=== PATIENT | female | born 1965 | race American Indian/Alaskan Native ===

== ENCOUNTER 2017-09-08 10:53 | Outpatient (CLI) | payer MEDICARE ==
--- NOTE | 2017-09-08 13:57 | Mammography Report ---
BILATERAL DIGITAL DIAGNOSTIC MAMMOGRAM with CAD and LEFT BREAST ULTRASOUND: 09/08/17 10:53:00 CLINICAL: Left breast pain for four days. Status post bilateral reduction mammoplasty. COMPARISON:02/26/16 FINDINGS: The breasts are almost entirely fatty.No mass, architectural distortion or suspicious calcifications. Ultrasound of the left breast in the area of pain from 2 o'clock to 5 o'clock and demonstrated normal fatty and fibroglandular structures. No mass, cyst or shadowing. IMPRESSION: Negative mammogram and negative left breast ultrasound. BI-RADS CATEGORY: 1 - - Negative RECOMMENDATION: Clinical followup and routine mammographic screening in one year. ACR BI-RADS MAMMOGRAPHIC CODES: 0 = Needs additional imaging evaluation; 1 = Negative; 2 = Benign; 3 = Probably benign; 4 = Suspicious; 5 = Malignant; 6 = Known biopsy-proven malignancy COMMENT: 1. Dense breast tissue, i.e., adenosis, fibrocystic changes, etc., may obscure an underlying neoplasm. 2. Approximately 10% of cancers are not detected with mammography. 3. A negative mammography report should not delay biopsy if a clinically suspicious mass is present. COMMENT: Patient follow-up letters are generated by our [employer] application.
== END 2017-09-08 10:54 | disposition home or self-care (01) ==
LOC: SPVWC 10:53
PROVIDERS: ATTEND Family Medicine
DX: N64.4 Mastodynia (principal); I10 Essential (primary) hypertension; F32.9 Major depressive disorder, single episode, unspecified; M19.90 Unspecified osteoarthritis, unspecified site; M79.7 Fibromyalgia; Z90.49 Acquired absence of other specified parts of digestive tract; Z90.89 Acquired absence of other organs; Z86.73 Personal history of transient ischemic attack (TIA), and cerebral infarction without residual deficits; Z88.6 Allergy status to analgesic agent; Z88.8 Allergy status to other drugs, medicaments and biological substances; Z91.013 Allergy to seafood
CPT/HCPCS: 77066

== ENCOUNTER 2018-05-22 19:49 | Emergency (ER) | payer MEDICARE ==
--- NOTE | 2018-05-22 20:28 | Emergency Department Report ---
Blank Doc - Documentation Documentation: luq pain with nausea and vomiting for 2-3 days. feverish
[2018-05-22] MEDS ORDERED: SUBLIMAZE IV ONE (20:45)
[2018-05-22] MEDS ORDERED: ZOFRAN IV ONE (20:45)
--- NOTE | 2018-05-22 20:49 | Emergency Department Report ---
ED Abdominal Pain HPI - General Chief Complaint: Abdominal Pain Stated Complaint: CHEST/BACK PAIN Time Seen by Provider: 05/22/18 20:24 Source: patient Mode of arrival: Ambulatory Limitations: No Limitations - History of Present Illness Initial Comments: Patient is 53 years old female with history of gastric sleeves and February 2018. Patient presented to the ER complaining of left lower quadrant pain since yesterday. Patient describes her pain as sharp with no radiation. Patient denied any nausea or vomiting or diarrhea. Patient stated that she's been having fever and chills. MD Complaint: abdominal pain Severity scale (0 -10): 10 - Related Data Home Medications Medication Instructions Recorded Confirmed Last Taken ALPRAZolam [Xanax TAB] 0.25 mg PO DAILY 10/10/14 02/13/15 Unknown Naproxen [Naprosyn TAB] 500 mg PO DAILY PRN 10/10/14 02/13/15 Unknown Percocet 5/325 mg 1 caplet PO PRN PRN 10/10/14 02/13/15 Unknown Pregabalin [Lyrica] 225 mg PO BID 10/10/14 02/13/15 Unknown Triamter/Hctz 37.5-25 mg 37.5 caplet PO DAILY 10/10/14 02/13/15 Unknown Zolpidem [Ambien] 10 mg PO QHS 10/10/14 02/13/15 Unknown Estradiol [Minivelle] 1 patch TRANSDERMA DAILY 02/13/15 02/13/15 Unknown PARoxetine MESYLATE [Brisdelle] 7.5 mg PO DAILY 02/13/15 02/13/15 Unknown cephALEXin [Keflex] 500 mg PO Q8HR 02/13/15 02/13/15 Unknown Previous Rx's Medication Instructions Recorded Last Taken Type Latanoprost [Latanoprost] 1 gm PO DAILY 10/11/14 Unknown Rx Nitroglycerin (Nf) [Nitrostat] 0.3 mg SL PRN #25 tablet 02/14/15 Unknown Rx Allergies Allergy/AdvReac Type Severity Reaction Status Date / Time cephalexin [From Keflex] Allergy Vomiting Verified 05/22/18 20:00 morphine Allergy Swelling Verified 05/22/18 20:00 shellfish derived Allergy Anaphylaxis Verified 10/10/14 17:49 ketorolac tromethamine AdvReac Unknown Verified 08/04/13 12:16 [From Toradol] promethazine HCl AdvReac Unknown Verified 08/04/13 12:15 [From Phenergan] ED Review of Systems ROS: Stated complaint: CHEST/BACK PAIN Other details as noted in HPI Comment: All other systems reviewed and negative Constitutional: denies: chills, fever Respiratory: denies: cough, orthopnea, shortness of breath, SOB with exertion, SOB at rest Cardiovascular: denies: chest pain, palpitations, dyspnea on exertion Gastrointestinal: abdominal pain. denies: nausea, vomiting, diarrhea, constipation, hematemesis, melena, hematochezia Genitourinary: denies: urgency Musculoskeletal: denies: back pain Neurological: denies: headache, weakness, numbness, paresthesias, confusion, abnormal gait ED Past Medical Hx - Past Medical History Previous Medical History?: Yes Hx Hypertension: Yes Hx CVA: No Hx Congestive Heart Failure: No Hx Diabetes: No Hx Pulmonary Embolism: No Hx GERD: No Hx Liver Disease: No Hx Sickle Cell Disease: No Hx Arthritis: Yes Hx Headaches / Migraines: No Hx Seizures: No Hx Psychiatric Treatment: No Hx Asthma: No Hx COPD: No Hx Tuberculosis: No Hx Dementia: No Hx HIV: No Additional medical history: fibramyalgia - Surgical History Hx Coronary Stent: No Hx Open Heart Surgery: No Hx Pacemaker: No Hx Internal Defibrillator: No Hx Cholecystectomy: Yes Hx Appendectomy: Yes Hx Breast Surgery: Yes (reduction-02/23, additional surgery 02/03/15) Additional Surgical History: gastric leef - Social History Smoking Status: Never Smoker Substance Use Type: None - Medications Home Medications: Home Medications Medication Instructions Recorded Confirmed Last Taken Type ALPRAZolam [Xanax TAB] 0.25 mg PO DAILY 10/10/14 02/13/15 Unknown History Naproxen [Naprosyn TAB] 500 mg PO DAILY PRN 10/10/14 02/13/15 Unknown History Percocet 5/325 mg 1 caplet PO PRN PRN 10/10/14 02/13/15 Unknown History Pregabalin [Lyrica] 225 mg PO BID 10/10/14 02/13/15 Unknown History Triamter/Hctz 37.5-25 mg 37.5 caplet PO DAILY 10/10/14 02/13/15 Unknown History Zolpidem [Ambien] 10 mg PO QHS 10/10/14 02/13/15 Unknown History Latanoprost [Latanoprost] 1 gm PO DAILY 10/11/14 02/13/15 Unknown Rx Estradiol [Minivelle] 1 patch TRANSDERMA DAILY 02/13/15 02/13/15 Unknown History PARoxetine MESYLATE [Brisdelle] 7.5 mg PO DAILY 02/13/15 02/13/15 Unknown History cephALEXin [Keflex] 500 mg PO Q8HR 02/13/15 02/13/15 Unknown History Nitroglycerin (Nf) [Nitrostat] 0.3 mg SL PRN #25 tablet 02/14/15 Unknown Rx ED Physical Exam - General Limitations: No Limitations General appearance: alert, in no apparent distress - Head Head exam: Present: atraumatic, normocephalic, normal inspection - Eye Eye exam: Present: normal appearance - ENT ENT exam: Present: normal exam, normal orophraynx, mucous membranes moist - Neck Neck exam: Present: normal inspection, full ROM. Absent: tenderness, meningismus, lymphadenopathy, thyromegaly - Respiratory Respiratory exam: Present: normal lung sounds bilaterally. Absent: respiratory distress, wheezes, rales, rhonchi, chest wall tenderness, accessory muscle use, decreased breath sounds, prolonged expiratory - Cardiovascular Cardiovascular Exam: Present: regular rate, normal rhythm, normal heart sounds - GI/Abdominal GI/Abdominal exam: Present: soft, tenderness (left lower quadrant tenderness), normal bowel sounds. Absent: distended, guarding, rebound, rigid, organomegaly, mass, bruit, pulsatile mass - Extremities Exam Extremities exam: Present: normal inspection, full ROM, normal capillary refill. Absent: pedal edema, calf tenderness - Back Exam Back exam: Present: normal inspection, full ROM. Absent: tenderness, CVA tenderness (R), CVA tenderness (L), muscle spasm, paraspinal tenderness, vertebral tenderness - Neurological Exam Neurological exam: Present: alert, oriented X3, CN II-XII intact, normal gait, reflexes normal - Skin Skin exam: Present: warm, intact, normal color ED Course Vital Signs 05/22/18 05/22/18 05/22/18 20:20 22:09 22:16 Temperature 99 F Pulse Rate 81 58 L 68 Respiratory 16 13 13 Rate Blood Pressure 131/88 151/89 O2 Sat by Pulse 99 97 98 Oximetry 05/22/18 05/22/18 05/22/18 22:30 22:45 23:00 Temperature Pulse Rate 60 54 L 62 Respiratory 13 10 L 13 Rate Blood Pressure 162/95 145/90 133/89 O2 Sat by Pulse 96 94 96 Oximetry 05/22/18 05/22/18 05/22/18 23:15 23:30 23:45 Temperature Pulse Rate 60 73 67 Respiratory 11 L 17 14 Rate Blood Pressure 135/84 135/84 135/88 O2 Sat by Pulse 97 96 95 Oximetry 05/23/18 00:00 Temperature Pulse Rate 60 Respiratory 11 L Rate Blood Pressure 146/92 O2 Sat by Pulse 98 Oximetry ED Medical Decision Making - Lab Data Result diagrams: 05/22/18 20:35 05/22/18 20:35 - Radiology Data Radiology results: report reviewed CT abdomen and pelvis is negative for acute finding. - Medical Decision Making Patient is 53 years old female with history of gastric sleeves and February 11. Patient presented to the ER complaining of left lower quadrant pain since yesterday. Patient describes her pain as sharp with no radiation. Patient denied any nausea or vomiting or diarrhea. Patient stated that she's been having fever and chills. Admission labs review is negative for acute finding. CT abdomen and pelvis is negative for acute finding. Patient stated that she is feeling much better. I advised the patient to follow-up with her primary care physician and to return to the ER if symptoms are not improved. Critical care attestation.: If time is entered above; I have spent that time in minutes in the direct care of this critically ill patient, excluding procedure time. ED Disposition Clinical Impression: Abdominal pain Disposition: DC-01 TO HOME OR SELFCARE Is pt being admited?: No Condition: Stable Instructions: Abdominal Pain (ED)
[2018-05-22 20:50] LABS: Basophils % (Auto) 0.6 % (0.0-1.8); Eosinophils # (Auto) 0.1 K/mm3 (0.0-0.4); Eosinophils % (Auto) 1.6 % (0.0-4.3); Hematocrit 40.9 % (30.3-42.9); Hemoglobin 13.2 gm/dl (10.1-14.3); Lymphocytes # (Auto) 2.3 K/mm3 (1.2-5.4); Lymphocytes % (Auto) 33.8 % (13.4-35.0); Mean Corpuscular HGB Conc 32 % (30-34); Mean Corpuscular Volume 86 fl (79-97); Monocytes # (Auto) 0.3 K/mm3 (0.0-0.8); Monocytes % (Auto) 4.9 % (0.0-7.3); Platelet Count 271 K/mm3 (140-440); Red Blood Count 4.75 M/mm3 (3.65-5.03); Red Cell Distribution Width 14.6 % (13.2-15.2)
[2018-05-22] MEDS ORDERED: SUBLIMAZE ONE (20:59)
[2018-05-22 21:07] LABS: Alanine Aminotransferase 17 units/L (7-56); Albumin 4.4 g/dL (3.9-5); BUN/Creatinine Ratio 17; Blood Urea Nitrogen 12 mg/dL (7-17); Calcium 9.3 mg/dL (8.4-10.2); Hemolysis Index 13
[2018-05-22 21:14] LABS: Bilirubin,Direct < 0.2 mg/dL (0-0.2)
[2018-05-22] MEDS ORDERED: DILAUDID ONE (22:20)
[2018-05-22] MEDS ORDERED: DILAUDID IV ONE (22:27)
[2018-05-23 00:23] VITALS: BP 146/92
[2018-05-23 00:23] LABS: Bilirubin,Urine NEG (Negative); Blood,Urine NEG (Negative); Color,Urine Yellow (Yellow); Hyaline Casts,Urine 1 /LPF; Mucus,Urine 2+ /HPF; Protein,Urine <15 mg/dL mg/dL (Negative); Urobilinogen,Urine < 2.0 mg/dL (<2.0)
--- NOTE | 2018-05-23 01:27 | Cat Scan Report ---
PROCEDURE: CT ABDOMEN PELVIS W CON HISTORY: abdominal pain FINDINGS: Contrast-enhanced CT of the abdomen and pelvis was performed following the intravenous administration of iodinated contrast. The heart is normal in size. The lung bases appear clear. ABDOMEN: Therethere is fatty infiltration of the liver. There is been a cholecystectomy. The spleen, adrenal glands, pancreas, kidneys are unremarkable. There has been an anterior ventral hernia repair. Pelvis: The appendix is not seen. There is no evidence of appendicitis. There is no evidence of diverticuliti s. There has been a hysterectomy. The urinary bladder is within normal limits. There is no free air. IMPRESSION: Gastric sleeve Fatty infiltration of the liver No bowel obstruction Pelvis: No evidence of diverticulitis Hysterectomy This document is electronically signed by Devyn Barker MD., May 23 2018 01:25:04 AM ET
== END 2018-05-23 02:09 | disposition home or self-care (01) ==
LOC: ED 19:49
DX: R10.32 Left lower quadrant pain (principal); R50.9 Fever, unspecified; I10 Essential (primary) hypertension; Z90.49 Acquired absence of other specified parts of digestive tract; Z98.890 Other specified postprocedural states
CPT/HCPCS: 36415; 74177; 80048; 80076; 81001; 83690; 85025; 93005; 93010; 96374; 96375; 99284; J1170; J2405; J3010; Q9967

== ENCOUNTER 2020-10-08 19:39 | Emergency (ER) | payer MEDICARE ==
[2020-10-08 22:15] LABS: Hematocrit 34.4 % (30.3-42.9); Hemoglobin 11.5 gm/dl (10.1-14.3); Mean Corpuscular HGB Conc 33 % (30-34); Mean Corpuscular Volume 86 fl (79-97); Platelet Count 248 K/mm3 (140-440); Red Blood Count 4.01 M/mm3 (3.65-5.03); Red Cell Distribution Width 14.6 % (13.2-15.2)
[2020-10-08 22:26] LABS: INR 0.86 (0.87-1.13)
[2020-10-08 22:27] LABS: Partial Thromboplastin Time 26.9 Sec. (24.2-36.6)
[2020-10-08 22:36] LABS: Alanine Aminotransferase 18 units/L (7-56); Albumin 4.1 g/dL (3.9-5); BUN/Creatinine Ratio 22; Blood Urea Nitrogen 20 mg/dL (7-17); Calcium 9.5 mg/dL (8.4-10.2); Hemolysis Index 2
[2020-10-09] MEDS ORDERED: ONDANSETRON 4 MG/2 ML INJ IV ONE (01:14)
[2020-10-09] MEDS ORDERED: HYDROmorphone 1 MG/1 ML INJ IV ONE (01:14)
--- NOTE | 2020-10-09 01:16 | Emergency Department Report ---
ED General Adult HPI - General Chief complaint: Extremity Problem,Nontraumatic Stated complaint: BILATERAL LEG EDEMA PUI?: No Time Seen by Provider: 10/09/20 01:13 Source: patient Mode of arrival: Ambulatory Limitations: No Limitations - History of Present Illness Initial comments: Patient is a 55-year-old female who presents emergency room with complaints of bilateral lower extremity pain. Patient states her bilateral extremity pain and swelling been going on for 3 weeks. Patient states that she saw her clip and hanger attacher today and clip and hanger attacher sent her to see her business and marketing teacher and the business and marketing teacher sent her to the hospital. Patient states she has been using compression stockings which is helped. Patient states the pain is a burning sensation. Patient states it is a 10 out of 10. Patient states the pain in her legs is worse with movement and palpation. Patient states the pain is better with rest and elevation. Patient denies a past medical history of CHF. Patient states she is on home oxygen due to the pulmonary problem. Patient states she sees a [employer]. Patient states her business and marketing teacher is Dr. Oswald. Patient denies recent travel. Patient denies recent international travel. Patient denies exposure to the novel coronavirus. Patient denies sick contacts. Patient denies fever and chills. Patient denies cough. Patient denies diarrhea. Patient denies coming in contact with anybody with symptoms of the novel coronavirus. -: Sudden Location: left, right, lower extremity Severity scale (0 -10): 10 Quality: burning Consistency: constant Improves with: rest Worsens with: movement Associated Symptoms: denies: confusion, chest pain, cough, diaphoresis, fever/chills, headaches, loss of appetite, malaise, nausea/vomiting, rash, seizure, shortness of breath, syncope, weakness Treatments Prior to Arrival: none - Related Data Home Medications Medication Instructions Recorded Confirmed Last Taken ALPRAZolam [Xanax TAB] 0.25 mg PO DAILY 10/10/14 02/13/15 Unknown Naproxen [Naprosyn TAB] 500 mg PO DAILY PRN 10/10/14 02/13/15 Unknown Percocet 5/325 mg 1 caplet PO PRN PRN 10/10/14 02/13/15 Unknown Pregabalin [Lyrica] 225 mg PO BID 10/10/14 02/13/15 Unknown Triamter/Hctz 37.5-25 mg 37.5 caplet PO DAILY 10/10/14 02/13/15 Unknown Zolpidem (Nf) [Ambien (Nf)] 10 mg PO QHS 10/10/14 02/13/15 Unknown Estradiol [Minivelle 0.025mg/24hr] 1 patch TRANSDERMA DAILY 02/13/15 02/13/15 Unknown PARoxetine MESYLATE [Brisdelle] 7.5 mg PO DAILY 02/13/15 02/13/15 Unknown cephALEXin [Keflex] 500 mg PO Q8HR 02/13/15 02/13/15 Unknown Previous Rx's Medication Instructions Recorded Last Taken Type Latanoprost [Latanoprost] 1 gm PO DAILY 10/11/14 Unknown Rx Nitroglycerin (Nf) [Nitrostat] 0.3 mg SL PRN #25 tablet 02/14/15 Unknown Rx Allergies Allergy/AdvReac Type Severity Reaction Status Date / Time cephalexin [From Keflex] Allergy Vomiting Verified 05/22/18 20:00 morphine Allergy Swelling Verified 05/22/18 20:00 shellfish derived Allergy Anaphylaxis Verified 10/10/14 17:49 ketorolac tromethamine AdvReac Unknown Verified 08/04/13 12:16 [From Toradol] promethazine HCl AdvReac Unknown Verified 08/04/13 12:15 [From Phenergan] ED Review of Systems ROS: Stated complaint: BILATERAL LEG EDEMA Other details as noted in HPI Constitutional: denies: chills, fever Eyes: denies: eye pain, eye discharge, vision change ENT: denies: ear pain, throat pain Respiratory: denies: cough, shortness of breath, wheezing Cardiovascular: denies: chest pain, palpitations Endocrine: no symptoms reported Gastrointestinal: denies: abdominal pain, nausea, diarrhea Genitourinary: denies: urgency, dysuria, discharge Musculoskeletal: denies: back pain, joint swelling, arthralgia Skin: denies: rash, lesions Neurological: denies: headache, weakness, paresthesias Psychiatric: denies: anxiety, depression Hematological/Lymphatic: denies: easy bleeding, easy bruising ED Past Medical Hx - Past Medical History Previous Medical History?: Yes Hx Hypertension: Yes Hx CVA: No Hx Congestive Heart Failure: No Hx Diabetes: No Hx Pulmonary Embolism: No Hx GERD: No Hx Liver Disease: No Hx Sickle Cell Disease: No Hx Arthritis: Yes Hx Headaches / Migraines: No Hx Seizures: No Hx Psychiatric Treatment: No Hx Asthma: No Hx COPD: No Hx Tuberculosis: No Hx Dementia: No Hx HIV: No Additional medical history: fibramyalgia - Surgical History Past Surgical History?: Yes Hx Coronary Stent: No Hx Open Heart Surgery: No Hx Pacemaker: No Hx Internal Defibrillator: No Hx Cholecystectomy: Yes Hx Appendectomy: Yes Hx Breast Surgery: Yes (reduction-02/23, additional surgery 02/03/15) Additional Surgical History: gastric sleeve, Hernia Surgery x 5 - Family History Family history: no significant - Social History Smoking Status: Never Smoker Substance Use Type: None - Medications Home Medications: Home Medications Medication Instructions Recorded Confirmed Last Taken Type ALPRAZolam [Xanax TAB] 0.25 mg PO DAILY 10/10/14 02/13/15 Unknown History Naproxen [Naprosyn TAB] 500 mg PO DAILY PRN 10/10/14 02/13/15 Unknown History Percocet 5/325 mg 1 caplet PO PRN PRN 10/10/14 02/13/15 Unknown History Pregabalin [Lyrica] 225 mg PO BID 10/10/14 02/13/15 Unknown History Triamter/Hctz 37.5-25 mg 37.5 caplet PO DAILY 10/10/14 02/13/15 Unknown History Zolpidem (Nf) [Ambien (Nf)] 10 mg PO QHS 10/10/14 02/13/15 Unknown History Latanoprost [Latanoprost] 1 gm PO DAILY 10/11/14 02/13/15 Unknown Rx Estradiol [Minivelle 0.025mg/24hr] 1 patch TRANSDERMA DAILY 02/13/15 02/13/15 Unknown History PARoxetine MESYLATE [Brisdelle] 7.5 mg PO DAILY 02/13/15 02/13/15 Unknown History cephALEXin [Keflex] 500 mg PO Q8HR 02/13/15 02/13/15 Unknown History Nitroglycerin (Nf) [Nitrostat] 0.3 mg SL PRN #25 tablet 02/14/15 Unknown Rx ED Physical Exam - General Limitations: No Limitations General appearance: alert, in no apparent distress - Head Head exam: Present: atraumatic, normocephalic - Eye Eye exam: Present: normal appearance - ENT ENT exam: Present: mucous membranes moist - Neck Neck exam: Present: normal inspection - Respiratory Respiratory exam: Present: normal lung sounds bilaterally. Absent: respiratory distress - Cardiovascular Cardiovascular Exam: Present: regular rate, normal rhythm. Absent: systolic murmur, diastolic murmur, rubs, gallop - GI/Abdominal GI/Abdominal exam: Present: soft, normal bowel sounds - Extremities Exam Extremities exam: Present: tenderness, pedal edema, calf tenderness - Back Exam Back exam: Present: normal inspection - Neurological Exam Neurological exam: Present: alert, oriented X3 - Psychiatric Psychiatric exam: Present: normal affect, normal mood - Skin Skin exam: Present: warm, dry, intact, normal color. Absent: rash ED Course Vital Signs 10/08/20 10/09/20 21:35 01:48 Temperature 97.9 F Pulse Rate 56 L 52 L Respiratory 16 13 Rate Blood Pressure 116/75 Blood Pressure 133/74 [Right] O2 Sat by Pulse 100 100 Oximetry - Reevaluation(s) Reevaluation #1: Patient states she is pain-free. I discussed all results and clinical findings with patient. I discussed plan of care with patient. Patient agrees with plan of care. Patient is stable for discharge. Patient will be discharged home. Patient given discharge instructions. Patient voiced understanding of discharge instructions. 10/09/20 03:44 ED Medical Decision Making - Lab Data Result diagrams: 10/08/20 21:56 10/08/20 21:56 - Radiology Data Radiology results: report reviewed DUPLEX DOPPLER LOWER EXTREMITY VEINS, BILATERAL INDICATION / CLINICAL INFORMATION: Bilateral lower extremity pain and swelling. TECHNIQUE: Duplex doppler imaging was performed through the veins of both lower extremities using venous compression and other maneuvers. COMPARISON: None available. FINDINGS: RIGHT COMMON FEMORAL VEIN: Negative. RIGHT FEMORAL VEIN: Negative. RIGHT POPLITEAL VEIN: Negative. RIGHT CALF VEINS: Negative. LEFT COMMON FEMORAL VEIN: Negative. LEFT FEMORAL VEIN: Negative. LEFT POPLITEAL VEIN: Negative. LEFT CALF VEINS: Negative. ADDITIONAL FINDINGS: None. IMPRESSION: 1. No sonographic evidence for DVT in either lower extremity. - Medical Decision Making Patient is a 55-year-old female presents emergency room complaints of lower extremity swelling and pain. Patient has swelling for 3 weeks. Patient was sent here by business and marketing teacher. Patient ultrasound done which was negative for DVT. Patient had labs done which showed a normal BNP. Patient had normal kidney function. Patient's labs were essentially unremarkable. Patient is 3 L of home oxygen and the patient's oxygen saturation was stable entire time was on her home amount of oxygen. Patient's vital signs are reassuring. Patient has Lasix 20 mg at home. Patient instructed to increase her Lasix to 40 mg daily for 3 days. Patient instructed to follow-up with a business and marketing teacher. Patient does not require inpatient services. Patient not require further emergency medical service. Patient is stable for discharge. Patient discharged home. - Differential Diagnosis Lower extremity pain and swelling. DVT: CHF. Critical care attestation.: If time is entered above; I have spent that time in minutes in the direct care of this critically ill patient, excluding procedure time. ED Disposition Clinical Impression: Swelling of lower extremity Edema Qualifiers: Edema type: unspecified Qualified Code(s): R60.9 - Edema, unspecified Lower extremity pain Qualifiers: Laterality: bilateral Qualified Code(s): M79.604 - Pain in right leg; M79.605 - Pain in left leg Disposition: DC-01 TO HOME OR SELFCARE Is pt being admited?: No Does the pt Need Aspirin: No Condition: Stable Instructions: Edema, [id number] Additional Instructions: Patient to follow-up with primary care in 2 to 3 days. Patient to follow-up with your business and marketing teacher in 2 to 3 days. Patient to rest. Patient to increase water. Patient to increase Lasix to 40 mg daily for 3 days. Patient eat a low- salt diet. Patient to increase water. Patient to continue all medications. Patient to monitor blood pressure at home. Patient to keep a blood pressure log. Patient to take blood pressure log to all follow-up appointments. Patient to take Tylenol as needed for pain. Patient to take meds as directed. Patient to return to the ER if condition worsens, changes or new symptoms arise. Referrals: BIJAL SPARKS MD [Primary Care Provider] - 2-3 Days NASIR OSWALD MD [Staff Physician] - 2-3 Days Time of Disposition: 03:50
--- NOTE | 2020-10-09 03:24 | Vascular Lab Report ---
DUPLEX DOPPLER LOWER EXTREMITY VEINS, BILATERAL INDICATION / CLINICAL INFORMATION: Bilateral lower extremity pain and swelling. TECHNIQUE: Duplex doppler imaging was performed through the veins of both lower extremities using venous augustin ruby and other maneuvers. COMPARISON: None available. FINDINGS: RIGHT COMMON FEMORAL VEIN: Negative. RIGHT FEMORAL VEIN: Negative. RIGHT POPLITEAL VEIN: Negative. RIGHT CALF VEINS: Negative. LEFT COMMON FEMORAL VEIN: Negative. LEFT FEMORAL VEIN: Negative. LEFT POPLITEAL VEIN: Negative. LEFT CALF VEINS: Negative. ADDITIONAL FINDINGS: None. IMPRESSION: 1. No sonographic evidence for DVT in either lower extremity. Signer Name: Pako Tucker MD Signed: 10/09/2020 3:20 AM Workstation Name: [id number]
[2020-10-09 04:39] VITALS: BP 129/77
== END 2020-10-09 04:38 | disposition home or self-care (01) ==
LOC: ED 19:39
DX: R60.0 Localized edema (principal); M79.604 Pain in right leg; M79.605 Pain in left leg; I10 Essential (primary) hypertension; Z98.890 Other specified postprocedural states; Z88.1 Allergy status to other antibiotic agents; Z88.5 Allergy status to narcotic agent; Z91.013 Allergy to seafood; Z88.6 Allergy status to analgesic agent
CPT/HCPCS: 36415; 80053; 83880; 85027; 85610; 85730; 93970; 96374; 96375; 99284; J1170; J2405